=== PATIENT | female | born 1955 | race African-American/Black ===

== ENCOUNTER 2018-05-14 17:42 | Emergency (ER) | payer MEDICARE ==
[~2018-05-14] VITALS: Ht 167.6 cm; Wt 107.5 kg
[2018-05-14 18:07] VITALS: BP 154/96
[2018-05-14] MEDS ORDERED: oxyCODONE/APAP 5/325 1 TAB TABLET PO ONE (19:15)
[2018-05-14] MEDS ORDERED: ORPH100T PO (19:35)
[2018-05-14] MEDS ORDERED: OXYC1TAB15 PO (19:35)
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
== END 2018-05-14 19:43 | disposition home or self-care (01) ==
LOC: ER 17:42
DX: G89.29 Other chronic pain (principal); M54.2 Cervicalgia; M54.9 Dorsalgia, unspecified; Z88.0 Allergy status to penicillin
CPT/HCPCS: 99283